=== PATIENT | male | born 1945 | race Caucasian/White ===

== ENCOUNTER 2017-02-13 03:56 | Emergency (ER) | payer OTHER, MEDICARE ==
[~2017-02-13] VITALS: Ht 190.5 cm; Wt 82.3 kg
[~2017-02-13 03:56] MED LIST: ALPR0.5T6 PO; AMLO5TAB2 PO; ASPI-496 PO; BP MED; DUTA1CPM PO; FINA5TAB4 PO; LABE100T3 PO; OMEP-110; OMEP20TA62 PO; OXYC1TAB9 PO; PENT100C2 PO; ROSU10TA PO; TAMS0.4C2 PO; [UNRECOGNIZED DRUG - CODE]
[2017-02-13 03:58] VITALS: BP 178/98
[2017-02-13 05:44] LABS: BLOOD UREA NITROGEN 21 mg/dL (7-18)
[2017-02-13 06:00] LABS: DIFF TOTAL CELLS COUNTED 100 CELL DIFF
[2017-02-13 06:08] LABS: VERIFY COUNTS? YES
== END 2017-02-13 07:56 | disposition left against medical advice (07) ==
LOC: ED 06:43
DX: G62.9 Polyneuropathy, unspecified (principal); I10 Essential (primary) hypertension; R20.9 Unspecified disturbances of skin sensation
CPT/HCPCS: 36415; 80048; 82040; 85025; 99284

== ENCOUNTER 2018-05-05 12:06 | Emergency (ER) | payer OTHER, MEDICARE ==
[~2018-05-05] VITALS: Ht 190.5 cm; Wt 98.0 kg
[~2018-05-05 12:06] MED LIST changes: -LABE100T3 PO; +LABE100T6 PO; +OXYC-432 PO; -OXYC1TAB9 PO
[2018-05-05 13:26] VITALS: BP 141/98
== END 2018-05-05 13:29 | disposition home or self-care (01) ==
LOC: ED 13:10
DX: I10 Essential (primary) hypertension (principal)
CPT/HCPCS: 36415; 80047; 99283

== ENCOUNTER 2018-05-07 10:08 | Emergency (ER) | payer OTHER, MEDICARE ==
[~2018-05-07] VITALS: Ht 190.5 cm; Wt 92.5 kg
[2018-05-07 12:58] VITALS: BP 164/112
== END 2018-05-07 13:01 | disposition home or self-care (01) ==
LOC: ED 12:29
DX: K40.91 Unilateral inguinal hernia, without obstruction or gangrene, recurrent (principal); I10 Essential (primary) hypertension
CPT/HCPCS: 99281

== ENCOUNTER 2018-12-18 18:23 | Emergency (ER) | payer OTHER, MEDICARE ==
[~2018-12-18] VITALS: Ht 190.5 cm; Wt 91.8 kg
[~2018-12-18 18:23] MED LIST changes: +AMLO-150 PO; -AMLO5TAB2 PO; -ROSU10TA PO; +ROSU10TA2 PO
--- NOTE | 2018-12-18 19:00 | NUR ---
PT CO RUE NUMBNESS X LAST NIGHT "I JUST THOUGHT THAT I SLEPT ON IT WRONG", NUMBNESS CONTINUES. PT DENIES TRAUMA/MIDLINE NECK OR BACK PAIN/CP/DIFFICULTY SWALLOWING. PT USING EXTREMITY. +MANAGER OF MEDICAL STRENGTH. NO PRONATOR DRIFT NOTED. <2S CAP REFILL. FACE SYMMETRICAL, SPEECH CLEAR.
[2018-12-18] MEDS ORDERED: SODIUM CHLORIDE FLUSH 10ML SYR IVF ONE (20:30)
[2018-12-18 20:34] VITALS: BP 141/86
--- NOTE | 2018-12-18 20:35 | NUR ---
PT SITTING UP IN NAT WERNER NOTED. PT DENIES NEED FOR PAIN MEDICATIONS. SO AT BS
[2018-12-18 20:38] LABS: BASOPHILS # (AUTO) 0.01 x10^3/uL (0-0.1); BASOPHILS % (AUTO) 0 % (0-1); EOSINOPHILS # (AUTO) 0.09 x10^3/uL (0-0.4); EOSINOPHILS % (AUTO) 2 % (1-7); LYMPHOCYTES # (AUTO) 0.98 x10^3/uL (1-3.4); LYMPHOCYTES % (AUTO) 27 % (22-44); MD NO; MEAN CORPUSCULAR HGB CONC 33.3 g/dL (33.2-36.2); MEAN CORPUSCULAR VOLUME 84.2 fL (81-97); MEAN PLATELET VOLUME 7.5 fL (7.4-10.4); MONOCYTES # (AUTO) 0.37 x10^3/uL (0.2-0.8); MONOCYTES % (AUTO) 10 % (2-9); NEUTROPHILS # (AUTO) 2.22 x10^3/uL (1.8-6.8); NEUTROPHILS % (AUTO) 60 % (42-75); PLATELET COUNT 195 x10^3/uL (130-400); RED BLOOD COUNT 4.84 x10^6/uL (4.38-5.82); RED CELL DISTRIBUTION WIDTH 13.9 % (9.4-14.8)
[2018-12-18 20:48] LABS: ALANINE AMINOTRANSFERASE 30 U/L (12-78); ANION GAP 4 mmol/L (5-15); CALCIUM 8.7 mg/dL (8.5-10.1); CHLORIDE 111 mmol/L (98-107); CREATININE 1.28 mg/dL (0.7-1.3)
--- NOTE | 2018-12-18 20:50 | NUR ---
Note daniel in EDM - 12/18/18 at 2050 by IBRAHIMA PT'S FRIEND, JARET, CALLED AND SPOKE WITH RN. FRIEND REPORTS PT TOOK 3 OF OWN OXYCODONES AND ETOH PRIOR TO SURGERY. ERP MADE AWARE.
[2018-12-18 20:51] LABS: ALKALINE PHOSPHATASE 64 U/L (45-117); BILIRUBIN,TOTAL 0.3 mg/dL (0.2-1.0); TOTAL PROTEIN 7.2 g/dL (6.4-8.2)
--- NOTE | 2018-12-18 21:44 | NUR ---
DC EDUCATION PROVIDED, PT DEMONSTRATES UNDERSTANDING. PT AMBULATED STEADILY TO DC WITH RN AND SO
== END 2018-12-18 21:46 | disposition home or self-care (01) ==
LOC: ED 21:38
DX: G62.9 Polyneuropathy, unspecified (principal); G58.8 Other specified mononeuropathies; I10 Essential (primary) hypertension; Z90.89 Acquired absence of other organs
CPT/HCPCS: 36415; 70450; 71045; 80053; 85025; 93005; 99284

== ENCOUNTER 2019-01-21 11:23 | Emergency (ER) | payer OTHER, MEDICARE ==
[~2019-01-21] VITALS: Ht 190.5 cm; Wt 89.0 kg
--- NOTE | 2019-01-21 11:37 | NUR ---
PT TO ED WITH HEADACHE/NECK PAIN X1 WEEK, NO N/T IN EXTREMETIES, MD AT BEDSIDE. PT ON MONITOR, VSS. CALL LIGHT WITHIN REACH
[2019-01-21] MEDS ORDERED: KETOROLAC 30 MG/1 ML ONE (11:49)
[2019-01-21] MEDS ORDERED: CYCLOBENZAPRINE 10 MG TABLET ONE (11:49)
[2019-01-21] MEDS ORDERED: KETOROLAC 30 MG/1 ML IM ONE (12:00)
[2019-01-21] MEDS ORDERED: CYCLOBENZAPRINE 10 MG TABLET PO ONE (12:00)
--- NOTE | 2019-01-21 12:24 | NUR ---
PT WATCHING TV IN [facility] WITH AT BEDSIDE, AWAITING CT SCAN
--- NOTE | 2019-01-21 13:02 | NUR ---
PT SLEEPING IN GURNEY ON MONITOR, EQUAL CHEST RISE AND FALL. AWAITING CT SCAN AT THIS TIME
--- NOTE | 2019-01-21 13:10 | NUR ---
PT TO CT
[2019-01-21 13:32] VITALS: BP 126/77
== END 2019-01-21 14:00 | disposition home or self-care (01) ==
LOC: ED 11:51
DX: M47.892 Other spondylosis, cervical region (principal); I10 Essential (primary) hypertension; G62.9 Polyneuropathy, unspecified
CPT/HCPCS: 72125; 96372; 99284; J1885

== ENCOUNTER 2019-04-24 20:08 | Emergency (ER) | payer OTHER, MEDICARE ==
[~2019-04-24] VITALS: Ht 190.5 cm; Wt 89.8 kg
[2019-04-24 22:30] VITALS: BP 160/74
== END 2019-04-24 22:33 | disposition home or self-care (01) ==
LOC: ED 21:31
DX: R04.0 Epistaxis (principal); I10 Essential (primary) hypertension; Z90.89 Acquired absence of other organs
CPT/HCPCS: 30901; 36415; 85025; 99284

== ENCOUNTER 2019-09-26 07:48 | Outpatient (CLI) | payer OTHER, MEDICARE ==
[~2019-09-26 07:48] MED LIST changes: +REGADENOSON 0.4 MG/5 ML SYRINGE ONE
[2019-10-18] MEDS ORDERED: GABA300C10 PO (14:06)
[2019-10-18] MEDS ORDERED: PANT40TA5 PO (14:06)
[2019-10-18] MEDS ORDERED: PARO40TA3 PO (14:06)
[2019-10-18] MEDS ORDERED: ROSU40TA PO (14:06)
== END 2019-09-26 23:59 | disposition home or self-care (01) ==
LOC: CFH 07:48
PROVIDERS: ATTEND Physician Assistant Medical
DX: I08.0 Rheumatic disorders of both mitral and aortic valves (principal); I77.819 Aortic ectasia, unspecified site; I10 Essential (primary) hypertension; E78.5 Hyperlipidemia, unspecified; R53.83 Other fatigue
CPT/HCPCS: 78452; 93017; 93306; A9502; J2785

== ENCOUNTER → 2019-10-18 | Outpatient (CLI) | payer OTHER, MEDICARE ==
[~2019-10-18] MED LIST changes: +GABA300C10 PO; +PANT40TA5 PO; +PARO40TA3 PO; -REGADENOSON 0.4 MG/5 ML SYRINGE ONE; +ROSU40TA PO
[2019-10-18 14:42] LABS: BASOPHILS # (AUTO) 0.01 x10^3/uL (0-0.1); BASOPHILS % (AUTO) 0 % (0-1); EOSINOPHILS # (AUTO) 0.09 x10^3/uL (0-0.4); EOSINOPHILS % (AUTO) 3 % (1-7); LYMPHOCYTES % (AUTO) 24 % (22-44); MD NO; MEAN CORPUSCULAR HEMOGLOBIN 27.2 pg (27.5-34.5); MEAN CORPUSCULAR HGB CONC 32.9 g/dL (33.2-36.2); MEAN CORPUSCULAR VOLUME 82.8 fL (81-97); MEAN PLATELET VOLUME 7.8 fL (7.4-10.4); MONOCYTES # (AUTO) 0.42 x10^3/uL (0.2-0.8); MONOCYTES % (AUTO) 11 % (2-9); NEUTROPHILS # (AUTO) 2.33 x10^3/uL (1.8-6.8); NEUTROPHILS % (AUTO) 62 % (42-75); PLATELET COUNT 177 x10^3/uL (130-400); RED BLOOD COUNT 4.52 x10^6/uL (4.38-5.82); RED CELL DISTRIBUTION WIDTH 15.2 % (9.4-14.8)
[2019-10-18 15:03] LABS: ALBUMIN 3.5 g/dL (3.4-5.0); ANION GAP 6 mmol/L (5-15); CALCIUM 8.5 mg/dL (8.5-10.1); CHLORIDE 112 mmol/L (98-107)
[2019-10-18 15:08] LABS: ALANINE AMINOTRANSFERASE 26 U/L (12-78); ALKALINE PHOSPHATASE 67 U/L (45-117); BILIRUBIN,TOTAL 0.6 mg/dL (0.2-1.0); CREATININE 1.21 mg/dL (0.7-1.3)
== END | disposition home or self-care (01) ==
LOC: STAR 13:50
PROVIDERS: ATTEND Nurse Practitioner Family
DX: Z01.818 Encounter for other preprocedural examination (principal); I65.21 Occlusion and stenosis of right carotid artery
CPT/HCPCS: 36415; 80053; 85025; 93005

== ENCOUNTER 2019-10-22 10:18 | Inpatient (IN) | payer OTHER, MEDICARE ==
[~2019-10-22] VITALS: Ht 190.5 cm; Wt 92.5 kg
[2019-10-22] MEDS ORDERED: ACETAMINOPHEN 500 MG TABLET PO ONE (11:00)
[2019-10-22] MEDS ORDERED: LIDOCAINE-MPF 1%, 2ML INFIL ONE (11:00)
[2019-10-22] MEDS: LACTATED RINGERS 1,000 ML IV SCH ×3 (11:04→22:03)
[2019-10-22] MEDS ORDERED: FENTANYL PF 250 MCG/5ML ONE (12:00)
[2019-10-22] MEDS ORDERED: DEXAMETHASONE 4 MG/ML, 1ML ONE (12:01)
[2019-10-22] MEDS ORDERED: CEFAZOLIN 1,000 MG ONE (12:01)
[2019-10-22] MEDS ORDERED: SUCCINYLCHOLINE 20 MG/ML, 10ML ONE (12:01)
[2019-10-22] MEDS ORDERED: PROPOFOL 10 MG/ML, 20ML ONE (12:01)
[2019-10-22] MEDS ORDERED: ONDANSETRON 2MG/ML, 2ML ONE (12:01)
[2019-10-22] MEDS ORDERED: LABETALOL 5MG/ML, 20ML IV PRN (12:30)
[2019-10-22] MEDS ORDERED: PROMETHAZINE 25 MG/ML, 1ML IV PRN (12:30)
[2019-10-22] MEDS ORDERED: OXYcodone 5 MG/5 ML ORAL.SOL UDC PO PRN (12:30)
[2019-10-22] MEDS ORDERED: MEPERIDINE/PF 25MG/ML,1ML IVPush PRN (12:30)
[2019-10-22] MEDS ORDERED: FENTANYL PF 100 MCG/2ML IV PRN (12:30)
[2019-10-22] MEDS ORDERED: hydrALAzine 20 MG/ML, 1ML IV PRN ×2 (12:30→20:30)
[2019-10-22] MEDS ORDERED: ONDANSETRON 2MG/ML, 2ML IV PRN ×2 (12:30→20:00)
[2019-10-22] MEDS ORDERED: EPHEDRINE 50 MG/ML, 1ML IVPush PRN (12:30)
[2019-10-22] MEDS ORDERED: HYDROmorphone 2 MG/ML, 1ML IVPush PRN (12:30)
[2019-10-22] MEDS ORDERED: HEPARIN 1,000 UNITS/ML, 10ML ONE (13:38)
[2019-10-22] MEDS ORDERED: PROTAMINE SULFATE 10 MG/ML, 5ML ONE (13:38)
[2019-10-22] MEDS ORDERED: PAPAVERINE 30 MG/ML, 2ML ONE (13:38)
[2019-10-22] MEDS ORDERED: THROMBIN 5,000 UNIT VIAL TP ONE (13:38)
[2019-10-22] MEDS ORDERED: BUPIVACAINE/PF 0.5% ONE (13:38)
[2019-10-22] MEDS ORDERED: EPINEPHRINE 1 MG/ML, 1ML ONE (13:38)
[2019-10-22] MEDS ORDERED: LIDOCAINE 1%, 20ML ONE (13:39)
[2019-10-22] MEDS ORDERED: LIDOCAINE PF 2%, 5ML ONE (14:14)
[2019-10-22] MEDS ORDERED: PHENYLEPHRINE 10 MG/ML ONE (14:14)
[2019-10-22] MEDS ORDERED: GLYCOPYRROLATE 0.2MG/1ML, 5ML ONE (14:32)
[2019-10-22] MEDS ORDERED: OXYcodone 5 MG/5 ML ORAL.SOL UDC ONE (17:26)
[2019-10-22] MEDS ORDERED: ASPIRIN 81 MG TABLET EC ONE (17:26)
[2019-10-22 18:40] VITALS: BP 109/70
[2019-10-22] MEDS ORDERED: LABETALOL 5MG/ML, 20ML IVPush PRN (20:00)
[2019-10-22] MEDS ORDERED: ACETAMINOPHEN 325 MG TABLET PO PRN (20:00)
[2019-10-22] MEDS ORDERED: HYDROcodone/APAP 5/325 TABLET PO PRN (20:00)
[2019-10-22] MEDS ORDERED: MORPHINE SULFATE 4 MG/ML, 1ML IV PRN (20:00)
[2019-10-22] MEDS: LABETALOL 100 MG TABLET PO SCH (21:00)
[2019-10-22] MEDS: SODIUM CHLORIDE FLUSH 10ML SYR IVF SCH (21:00)
[2019-10-22] MEDS ORDERED: GABAPENTIN 300 MG CAPSULE PO SCH (21:00)
[2019-10-22] MEDS ORDERED: ATORVASTATIN 80 MG TABLET PO SCH (21:00)
[2019-10-22] MEDS: CEFAZOLIN PMX 2GM/50ML 50 ML IVPB SCH (22:04)
[2019-10-22 23:39] VITALS: BP 111/69
[2019-10-23 03:46] VITALS: BP 108/61
[2019-10-23] MEDS: LACTATED RINGERS 1,000 ML IV SCH (06:00)
[2019-10-23] MEDS ORDERED: PANTOPROZOLE 40MG TABLET PO SCH (06:00)
[2019-10-23] MEDS ORDERED: ASPIRIN 81 MG TABLET EC PO SCH ×2 (06:00)
[2019-10-23] MEDS: LABETALOL 100 MG TABLET PO SCH (07:52)
[2019-10-23] MEDS: CEFAZOLIN PMX 2GM/50ML 50 ML IVPB SCH (08:02)
[2019-10-23] MEDS: SODIUM CHLORIDE FLUSH 10ML SYR IVF SCH (08:03)
[2019-10-23] MEDS ORDERED: PAROXETINE 10 MG TABLET ONE (08:08)
[2019-10-23] MEDS ORDERED: PAROXETINE 20 MG TABLET PO SCH (09:00)
[2019-10-23 09:20] VITALS: BP 110/58
== END 2019-10-23 10:20 | disposition home or self-care (01) | DRG 39 ==
LOC: ORIP 10:18 → 4NE 18:17 → DCLOUNGE 10-23 10:11
PROVIDERS: ADMIT Surgery; ATTEND Surgery
PROC: 03CM0ZZ Extirpation of Matter from Right External Carotid Artery, Open Approach (ICD-10-PCS; 2019-10-22)
PROC: 03CK0ZZ Extirpation of Matter from Right Internal Carotid Artery, Open Approach (ICD-10-PCS; 2019-10-22)
PROC: 03UH0KZ Supplement Right Common Carotid Artery with Nonautologous Tissue Substitute, Open Approach (ICD-10-PCS; 2019-10-22)
PROC: 03UK0KZ Supplement Right Internal Carotid Artery with Nonautologous Tissue Substitute, Open Approach (ICD-10-PCS; 2019-10-22)
PROC: 03UM0KZ Supplement Right External Carotid Artery with Nonautologous Tissue Substitute, Open Approach (ICD-10-PCS; 2019-10-22)
PROC: 03HY32Z Insertion of Monitoring Device into Upper Artery, Percutaneous Approach (ICD-10-PCS; 2019-10-22)
PROC: 03CH0ZZ Extirpation of Matter from Right Common Carotid Artery, Open Approach (ICD-10-PCS; principal; 2019-10-22 12:30)
DX: I65.21 Occlusion and stenosis of right carotid artery (principal); E78.5 Hyperlipidemia, unspecified; I10 Essential (primary) hypertension; K21.9 Gastro-esophageal reflux disease without esophagitis; Z88.8 Allergy status to other drugs, medicaments and biological substances; Z79.899 Other long term (current) drug therapy
CPT/HCPCS: 36415; S0020; 86850; 86900; C1729; G0378; J0171; J0690; J1100; J1644; J2405; J2704; J2720; J3010; C1768; J0330; J2370; J2440; J7120

== ENCOUNTER 2019-10-27 13:43 | Emergency (ER) | payer OTHER, MEDICARE ==
[~2019-10-27] VITALS: Ht 175.3 cm; Wt 94.5 kg
[2019-10-27 13:49] VITALS: BP 129/90
--- NOTE | 2019-10-27 14:38 | NUR ---
PT LAYING ON GURNEY, NO ACUTE DISTRESS NOTED. S/P SURGICAL WOUND TO RIGHT NECK, SOME REDNESS. NO IV TO DC. REVIEWED DC INSTRUCTIONS WITH PT AND PTS . UNDERSTANDING VERBALIZED.
== END 2019-10-27 14:50 ==
LOC: ED 14:45
DX: L03.221 Cellulitis of neck (principal); M79.81 Nontraumatic hematoma of soft tissue; I10 Essential (primary) hypertension; Z90.89 Acquired absence of other organs
CPT/HCPCS: 99283; 99284

== ENCOUNTER 2019-11-06 13:52 | Emergency (ER) | payer OTHER, MEDICARE ==
[~2019-11-06] VITALS: Ht 190.5 cm; Wt 86.5 kg
--- NOTE | 2019-11-06 14:11 | NUR ---
PT PRESENTING TO ER FOR SYNCOPAL EPISODE YESTERDAY AFTER VOMITTING, PT LOST CONSCIOUSNESS HIT HEAD ON TUB AND CHEST ON TOILET. PT STILL HAVING PAIN AND FEELING DIZZY. CONNECTED TO ALL MONITORING, HTN NOTED. MD ORDERS RECEIVED. IV STARTED, LABS DRAWN, FLUIDS RUNNING. CALL LIGHT WITHIN REACH
[2019-11-06] MEDS ORDERED: LABETALOL 100 MG TABLET PO STA (14:15)
--- NOTE | 2019-11-06 14:24 | NUR ---
REQUEST SENT TO PHARM.
[2019-11-06] MEDS ORDERED: SODIUM CHLORIDE FLUSH 10ML SYR IVF ONE (14:30)
[2019-11-06] MEDS ORDERED: SODIUM CHLORIDE 0.9% 1,000ML IVBOLUS ONE (14:30)
[2019-11-06 14:35] LABS: BASOPHILS # (AUTO) 0.01 x10^3/uL (0-0.1); BASOPHILS % (AUTO) 1 % (0-1); EOSINOPHILS # (AUTO) 0.02 x10^3/uL (0-0.4); EOSINOPHILS % (AUTO) 1 % (1-7); LYMPHOCYTES # (AUTO) 0.79 x10^3/uL (1-3.4); LYMPHOCYTES % (AUTO) 25 % (22-44); MD NO; MEAN CORPUSCULAR HEMOGLOBIN 27.3 pg (27.5-34.5); MEAN CORPUSCULAR HGB CONC 33.1 g/dL (33.2-36.2); MEAN CORPUSCULAR VOLUME 82.7 fL (81-97); MEAN PLATELET VOLUME 7.4 fL (7.4-10.4); MONOCYTES # (AUTO) 0.44 x10^3/uL (0.2-0.8); MONOCYTES % (AUTO) 14 % (2-9); NEUTROPHILS # (AUTO) 1.91 x10^3/uL (1.8-6.8); NEUTROPHILS % (AUTO) 60 % (42-75); PLATELET COUNT 204 x10^3/uL (130-400); RED BLOOD COUNT 4.96 x10^6/uL (4.38-5.82)
[2019-11-06 14:46] LABS: ANION GAP 10 mmol/L (5-15); CALCIUM 8.7 mg/dL (8.5-10.1); CHLORIDE 107 mmol/L (98-107); CREATININE 1.54 mg/dL (0.7-1.3)
[2019-11-06 14:50] LABS: TROPONIN I < 0.015 ng/mL (0.000-0.045)
--- NOTE | 2019-11-06 15:00 | NUR ---
ALL RESULTS BACK AT THIS TIME, CHART UP FOR RECHECK
[2019-11-06 15:26] VITALS: BP 150/91
--- NOTE | 2019-11-06 16:03 | NUR ---
TO BEDSIDE FOR RECHECK
== END 2019-11-06 16:33 | disposition home or self-care (01) ==
LOC: ED 16:15
DX: R55 Syncope and collapse (principal); E86.0 Dehydration; I10 Essential (primary) hypertension; K21.9 Gastro-esophageal reflux disease without esophagitis; E78.5 Hyperlipidemia, unspecified; R07.89 Other chest pain; Z90.89 Acquired absence of other organs
CPT/HCPCS: 36415; 71045; 80048; 82040; 84484; 85025; 93005; 96360; 99285; J7030

== ENCOUNTER → 2020-01-16 | Outpatient (CLI) | payer OTHER, MEDICARE | END | disposition home or self-care (01) | LOC: CVU 14:30 | PROVIDERS: ATTEND Surgery | DX: I65.23 Occlusion and stenosis of bilateral carotid arteries (principal) | CPT/HCPCS: 93880 ==

== ENCOUNTER 2020-05-18 15:00 | Emergency (ER) | payer MEDICARE, OTHER ==
[~2020-05-18] VITALS: Ht 190.5 cm; Wt 96.2 kg
[~2020-05-18 15:00] MED LIST changes: -OXYC-432 PO; +OXYC1TAB18 PO; -PANT40TA5 PO; +PANT40TA6 PO
[2020-05-18] MEDS ORDERED: ASPIRIN 81 MG TABLET CHEW ONE (15:22)
[2020-05-18] MEDS ORDERED: ASPIRIN 81 MG TABLET CHEW PO ONE (15:30)
[2020-05-18 15:49] LABS: ALANINE AMINOTRANSFERASE 20 U/L (12-78); ALBUMIN 3.9 g/dL (3.4-5.0); ANION GAP 7 mmol/L (5-15); BASOPHILS # (AUTO) 0.01 x10^3/uL (0-0.1); BASOPHILS % (AUTO) 0 % (0-1); CALCIUM 8.8 mg/dL (8.5-10.1); CHLORIDE 111 mmol/L (98-107); CREATININE 1.24 mg/dL (0.7-1.3); EOSINOPHILS # (AUTO) 0.09 x10^3/uL (0-0.4); EOSINOPHILS % (AUTO) 2 % (1-7); LYMPHOCYTES # (AUTO) 0.93 x10^3/uL (1-3.4); LYMPHOCYTES % (AUTO) 17 % (22-44); MD NO; MEAN CORPUSCULAR HEMOGLOBIN 27.5 pg (27.5-34.5); MEAN CORPUSCULAR HGB CONC 32.7 g/dL (33.2-36.2); MEAN CORPUSCULAR VOLUME 84.1 fL (81-97); MEAN PLATELET VOLUME 7.3 fL (7.4-10.4); MONOCYTES # (AUTO) 0.54 x10^3/uL (0.2-0.8); MONOCYTES % (AUTO) 10 % (2-9); NEUTROPHILS # (AUTO) 4.02 x10^3/uL (1.8-6.8); NEUTROPHILS % (AUTO) 72 % (42-75); PLATELET COUNT 250 x10^3/uL (130-400); RED BLOOD COUNT 4.88 x10^6/uL (4.38-5.82); RED CELL DISTRIBUTION WIDTH 14.5 % (9.4-14.8)
[2020-05-18 15:53] LABS: ALKALINE PHOSPHATASE 64 U/L (45-117); BILIRUBIN,TOTAL 0.4 mg/dL (0.2-1.0); TOTAL PROTEIN 7.6 g/dL (6.4-8.2); TROPONIN I < 0.015 ng/mL (0.000-0.045)
--- NOTE | 2020-05-18 15:58 | NUR ---
ALL TESTS RESULTED. PT IS UP FOR RECHECK AT THIS TIME. RESP EVEN AND UNLABORED, NADN.
--- NOTE | 2020-05-18 16:02 | NUR ---
AT BEDSIDE FOR EVAL.
--- NOTE | 2020-05-18 16:49 | NUR ---
PIV STARTED W/O INCIDENT. PT RESTING ON GURNEY W/ CALL LIGHT IN REACH, SIDE RAILS UPX2 AND FAMILY AT BEDSIDE. VSS, VADIM. AWAITING CTA.
--- NOTE | 2020-05-18 18:15 | NUR ---
PT TO CT.
--- NOTE | 2020-05-18 19:00 | NUR ---
REPORT GIVEN TO LUISA TERRAZAS. PT RESTING ON [employer] W/ CALL LIGHT IN REACH. RESP EVEN AND UNLABORED, VADIM.
[2020-05-18] MEDS ORDERED: OMNIPAQUE 350 MG/ML, 100ML BOTTLE ONE (19:47)
[2020-05-18 20:02] VITALS: BP 132/88
== END 2020-05-18 20:04 | disposition home or self-care (01) ==
LOC: ED 18:07
DX: R07.89 Other chest pain (principal); R11.2 Nausea with vomiting, unspecified; R94.31 Abnormal electrocardiogram [ECG] [EKG]; I10 Essential (primary) hypertension; E78.5 Hyperlipidemia, unspecified; K21.9 Gastro-esophageal reflux disease without esophagitis; Z90.89 Acquired absence of other organs
CPT/HCPCS: 36415; 71045; 71275; 80053; 84484; 85025; 85379; 93005; 99285; Q9967

== ENCOUNTER → 2020-11-04 | Outpatient (CLI) | payer BC, MEDICARE ==
[~2020-11-04] MED LIST changes: -ALPR0.5T6 PO; +ALPR0.5T93 PO
== END | disposition home or self-care (01) ==
LOC: CVU 07:36
PROVIDERS: ATTEND Registered Nurse
DX: I06.8 Other rheumatic aortic valve diseases (principal); I65.23 Occlusion and stenosis of bilateral carotid arteries; R42 Dizziness and giddiness; I77.819 Aortic ectasia, unspecified site
CPT/HCPCS: 93306; 93356; 93880

== ENCOUNTER → 2020-11-18 | Outpatient (CLI) | payer BC, MEDICARE | END | disposition home or self-care (01) | LOC: CFH 07:59 | PROVIDERS: ATTEND Registered Nurse | DX: R42 Dizziness and giddiness (principal); I77.819 Aortic ectasia, unspecified site; I65.21 Occlusion and stenosis of right carotid artery | CPT/HCPCS: 78452; 93017; A9502 ==

== ENCOUNTER 2020-12-18 08:03 | Day surgery (SDC) | payer BC, MEDICARE ==
[~2020-12-18] VITALS: Ht 190.5 cm; Wt 95.5 kg
[2020-12-18 09:10] VITALS: BP 150/95
[2020-12-18] MEDS ORDERED: MECL-101 PO (09:21)
[2020-12-18] MEDS ORDERED: BENZ-17 PO (09:21)
[2020-12-18] MEDS ORDERED: HYDR-826 PO (09:21)
[2020-12-18] MEDS ORDERED: AMLO2.5T5 PO (09:23)
[2020-12-18 09:40] LABS: BASOPHILS % (AUTO) 0 % (0-1); EOSINOPHILS % (AUTO) 1 % (1-7); LYMPHOCYTES % (AUTO) 14 % (22-44); MEAN CORPUSCULAR HEMOGLOBIN 25.1 pg (27.5-34.5); MEAN CORPUSCULAR HGB CONC 32.4 g/dL (33.2-36.2); MEAN PLATELET VOLUME 7.7 fL (7.4-10.4); MONOCYTES % (AUTO) 8 % (2-9); NEUTROPHILS % (AUTO) 77 % (42-75); PLATELET COUNT 214 x10^3/uL (130-400); RED BLOOD COUNT 4.74 x10^6/uL (4.38-5.82); RED CELL DISTRIBUTION WIDTH 16.9 % (9.4-14.8)
[2020-12-18 09:42] LABS: MD NO
[2020-12-18 09:49] LABS: ALANINE AMINOTRANSFERASE 24 U/L (12-78); ANION GAP 5 mmol/L (5-15); CHLORIDE 112 mmol/L (98-107); CREATININE 1.27 mg/dL (0.7-1.3)
[2020-12-18 09:51] LABS: ALKALINE PHOSPHATASE 63 U/L (45-117); BILIRUBIN,TOTAL 0.6 mg/dL (0.2-1.0); TOTAL PROTEIN 7.6 g/dL (6.4-8.2)
[2020-12-18] MEDS ORDERED: FENTANYL PF 100 MCG/2ML ONE ×2 (10:05→12:13)
[2020-12-18] MEDS ORDERED: MIDAZOLAM 1 MG/ML, 5ML ONE (10:05)
[2020-12-18] MEDS ORDERED: LIDOCAINE 2%, 20ML ONE (10:05)
[2020-12-18 10:11] LABS: INTERNATIONAL NORMALIZED RATIO 1.07 (0.93-1.1); PROTHROMBIN TIME 11.4 Seconds (9.6-11.5)
[2020-12-18] MEDS ORDERED: FENTANYL PF 100 MCG/2ML IVPush ONE (12:30)
== END 2020-12-18 17:11 | disposition home or self-care (01) ==
LOC: CACL 08:03
PROVIDERS: ATTEND Internal Medicine Cardiovascular Disease
DX: R07.89 Other chest pain (principal); I25.118 Atherosclerotic heart disease of native coronary artery with other forms of angina pectoris; I77.819 Aortic ectasia, unspecified site; I10 Essential (primary) hypertension; E78.00 Pure hypercholesterolemia, unspecified; K21.9 Gastro-esophageal reflux disease without esophagitis; E66.3 Overweight; Z68.28 Body mass index [BMI] 28.0-28.9, adult; Z79.82 Long term (current) use of aspirin; Z79.891 Long term (current) use of opiate analgesic; Z79.899 Other long term (current) drug therapy; Z88.8 Allergy status to other drugs, medicaments and biological substances; Z98.890 Other specified postprocedural states
CPT/HCPCS: 36415; 80053; 85025; 85610; 85730; 93458; 99156; C1769; C1894; J2250; J3010; Q9967

== ENCOUNTER 2020-12-21 17:55 | Emergency (ER) | payer BC, MEDICARE ==
[~2020-12-21] VITALS: Ht 190.5 cm; Wt 93.8 kg
[~2020-12-21 17:55] MED LIST changes: +AMLO2.5T5 PO; +BENZ-17 PO; +HYDR-826 PO; +MECL-101 PO
[2020-12-21] MEDS ORDERED: ONDANSETRON 2MG/ML, 2ML ONE (18:46)
[2020-12-21] MEDS ORDERED: MORPHINE SULFATE 4 MG/ML, 1ML ONE (18:47)
--- NOTE | 2020-12-21 18:58 | NUR ---
PIV PLACED BY TASK RN, UNABLE TO DRAW LABS. PT AMBULATED TO RESTROOM WITH STEADY GAIT TO PROVIDE URINE SAMPLE. QC LAB TECHNICIAN NOTIFIED OF NEED FOR LAB DRAWN
[2020-12-21] MEDS ORDERED: SODIUM CHLORIDE FLUSH 10ML SYR IVF ONE (19:00)
[2020-12-21] MEDS ORDERED: ONDANSETRON 2MG/ML, 2ML IVPush ONE (19:00)
[2020-12-21] MEDS ORDERED: MORPHINE SULFATE 4 MG/ML, 1ML IVPush PRN (19:00)
[2020-12-21 19:29] LABS: ALANINE AMINOTRANSFERASE 26 U/L (12-78); ALBUMIN 4.4 g/dL (3.4-5.0); ANION GAP 8 mmol/L (5-15); CALCIUM 9.2 mg/dL (8.5-10.1); CHLORIDE 111 mmol/L (98-107); CREATININE 1.45 mg/dL (0.7-1.3)
[2020-12-21 19:31] LABS: ALKALINE PHOSPHATASE 77 U/L (45-117); BILIRUBIN,TOTAL 0.5 mg/dL (0.2-1.0); TOTAL PROTEIN 8.3 g/dL (6.4-8.2)
--- NOTE | 2020-12-21 19:35 | NUR ---
GOING TO CT
[2020-12-21 19:38] LABS: MICROSCOPIC NOT IND
[2020-12-21 19:49] LABS: MEAN CORPUSCULAR HEMOGLOBIN 25.4 pg (27.5-34.5)
[2020-12-21 19:51] LABS: BASOPHILS % (AUTO) 1 % (0-1); EOSINOPHILS % (AUTO) 3 % (1-7); LYMPHOCYTES % (AUTO) 21 % (22-44); MEAN CORPUSCULAR HGB CONC 32.7 g/dL (33.2-36.2); MEAN PLATELET VOLUME 7.5 fL (7.4-10.4); MONOCYTES % (AUTO) 12 % (2-9); NEUTROPHILS % (AUTO) 64 % (42-75); PLATELET COUNT 240 x10^3/uL (130-400); RED BLOOD COUNT 5.12 x10^6/uL (4.38-5.82)
--- NOTE | 2020-12-21 19:51 | NUR ---
PT BACK FROM CT. PT STATES IS BETTER. DENIES FURTHER NEEDS AT THIS TIME.
[2020-12-21] MEDS ORDERED: OMNIPAQUE 350 MG/ML, 150 ML BOTTLE ONE (20:07)
[2020-12-21] MEDS ORDERED: SODIUM CHLORIDE 0.9% 1,000ML IVBOLUS ONE (20:30)
[2020-12-21 21:02] VITALS: BP 165/86
== END 2020-12-21 21:08 | disposition home or self-care (01) ==
LOC: ED 20:30
DX: R10.31 Right lower quadrant pain (principal); R10.2 Pelvic and perineal pain; I10 Essential (primary) hypertension; E78.5 Hyperlipidemia, unspecified; K21.9 Gastro-esophageal reflux disease without esophagitis; Z90.89 Acquired absence of other organs
CPT/HCPCS: 36415; 75635; 80053; 81003; 85025; 96361; 96374; 96375; 99285; J2270; J2405; J7030; Q9967